=== PATIENT | female | born 1950 | race Caucasian/White ===

== ENCOUNTER → 2017-07-07 | Outpatient (CLI) | payer MEDICARE ==
[~2017-07-07] MED LIST: FUROSEMIDE INJ 10 MG/ML 4 ML VIAL ONE
--- NOTE | 2017-07-07 16:35 | Diagnostic Imaging Report ---
Renal Scan with Lasix Washout Clinical information: 67 F with unspecified hydronephrosis; congenital absence of the right kidney Comparison: Prior renal scan with Lasix 06/13/2016, 05/21/2015 and 06/12/2014 Technique: Following intravenous administration of 10 mCi of Tc-99m MAG3, dynamic images of the kidneys in the posterior projection were obtained through 40 minutes. Lasix 40 mg was administered intravenously at 10 minutes post injection of the tracer. Report: Left kidney: Perfusion of the left kidney is prompt. The kidney has a very elongated reniform shape with moderately severe thinning of the renal cortex.. Extraction of tracer from the blood pool is normal. Clearance of tracer from the renal parenchyma is prompt. The pelvicalyceal system is dilated, most prominently the intrarenal pelvis. Increased pooling of tracer within the pelvicalyceal system is seen. No net drainage of tracer from the pelvicalyceal system is seen prior to administration of Lasix. Washout of tracer from the pelvicalyceal system following administration of Lasix is rapid with a T-1/2 of 8 minutes (normal less than 15 minutes). No significant stasis of tracer is seen within the left ureter. Differential renal function: The left kidney contributes 100% of total renal function. Impression: The appearance, function and drainage of the left kidney are unchanged compared to the prior studies of 06/13/2016, 05/21/2015 and 06/12/2014. Comparison of the renograms shows high stability of function. The elongated appearance of the kidney may be congenital rather than obstructive. The dilated renal pelvis has a large capacity mainly because it lies along the elongated kidney; it does not have a bulging appearance. No physiologically significant obstruction of the renal collecting system is present. Signed by: Dr. Janiya Rodriguez M.D. on 07/07/2017 4:32 PM
== END ==
LOC: NM 08:14
PROVIDERS: ATTEND Urology
DX: N13.30 Unspecified hydronephrosis (principal)
CPT/HCPCS: 78708; A9562; J1940

== ENCOUNTER → 2018-06-20 | Outpatient (CLI) | payer MEDICARE ==
--- NOTE | 2018-06-21 21:57 | Diagnostic Imaging Report ---
Renal Scan with Lasix Washout Clinical information: 68 Technique: Following intravenous administration of 10 mCi of Tc-99m MAG3, dynamic images of the kidneys in the posterior projection were obtained through 40 minutes. Lasix 40 mg was administered intravenously at 10 minutes post injection of the tracer. Report: Left kidney: Perfusion of the left kidney is prompt. The kidney appears to consist of two moieties. Region of interest analysis was done of each moiety. The top moiety is labeled "right kidney". The lower moiety is larger and has the appearance of a mildly elongated kidney with moderate to marked thinning of the renal cortex. The upper moiety is smaller and is not elongated but has significant thinning of the renal cortex. Extraction of tracer from the blood pool by both moieties is normal for age. Clearance of tracer from the renal parenchyma of the top moiety is prompt and there is increased pooling of tracer within its pelvicaliceal system, most markedly in the renal pelvis. No net drainage of tracer form the pelvicalyceal system is seen prior to administration of Lasix. Washout of from the pelvicalyceal system following Lasix is prompt with a T-1/2 of 6 minutes (normal <15 minutes) There is some tracer retained in the renal cortex. No tracer is seen in the ureter associated with this upper moiety. The lower moiety shows a slightly prolonged clearance of tracer from the renal parenchyma. The pelvicalyceal sytem is dilated and there is pooling of tracer with in the pelvicalyceal system although not as much as in the upper moiety. There is no net drainage of tracer from th pelvicalyceal system prior to administration of Lasix. Following Lasix, washout of tracer from the pelvicalyceal system is adequate with a T-1/2 of clearance of tracer from the renal parenchyma of 12 minutes (normal <15 minutes). The ureter for the lower moiety exits from the kidney very inferiorly. There is no function renal parenchyma in the right renal bed. Differential renal function: The left kidney, which is the lower moiety, contributes 57% of total renal function and the "right kidney," which is the upper moiety contributes 43% (normal 43-57%). Impression: 1. The function of the left kidney, which is the lower moiety of the kidney in the left renal shows evidence of medical renal disease. The pelvicalyceal system is dilated but washout is within the normal. Physiologically significant obstruction of the UPJ is not suspected. The ureter exits the kidney from a very inferior position. It is not clear from the images if this ureter drains the entire kidney, that it both the lower and upper moieties, or just the lower moiety. 2 The function of the upper moiety of the kidney in the left renal bed is labeled as "right kidney" on the renograms. There is evidence of medical renal disease. Hydronephrosis is present and includes dilation of the renal pelvis. Washout of tracer from the pelvicalyceal system is adequate. Physiologically significant obstruction is not suspected. None of the images show a separate ureter for the upper moiety so can not be certain if there is a separate ureter draining tracer from the upper moiety or if the upper moiety drains into the lower moiety and they through the low-lying ureter seen that is draining the lower moiety. 3. The differential renal function is within the normal range although it is maximally widened. 4. Comparison to the most recent prior renal scan with Lasix shows greater hydronephrosis in the upper portion but is otherwise unchanged. The prior study was not reported as two moieties for the left kidney. Signed by: Dr. Janiya Rodriguez M.D. on 06/21/2018 9:53 PM
== END ==
LOC: NM 08:06
PROVIDERS: ATTEND Urology
DX: N13.5 Crossing vessel and stricture of ureter without hydronephrosis (principal); N13.1 Hydronephrosis with ureteral stricture, not elsewhere classified
CPT/HCPCS: 78708; A9562; J1940

== ENCOUNTER → 2019-11-27 | Outpatient (CLI) | payer MEDICARE, OTHER ==
--- NOTE | 2019-11-27 14:32 | Diagnostic Imaging Report ---
EXAM: Renal Ultrasound INDICATION: Chronic kidney disease, urinary tract infection COMPARISON: None TECHNIQUE: Transverse and longitudinal images of the kidneys and bladder were obtained. FINDINGS: Right Kidney: Status post right nephrectomy. Left Kidney: Length: 15.3 cm Appearance: Normal echogenicity. Collecting system: Severe hydronephrosis Stones: None Cyst/Mass: None Bladder: No mass or calculi. Left ureteral jet visualized. Prevoid volume estimate of 86.5 cc. Post void volume of 16.8 cc. IMPRESSION: Status post right nephrectomy. Severe left hydronephrosis which does not resolve after voiding. Signed by: Zain Lacy MD on 11/27/2019 2:29 PM
--- NOTE | 2019-11-27 18:55 | Diagnostic Imaging Report ---
Renal Scan with Lasix Washout Clinical information: 69 F with unspecified hydronephrosis; congenital absence of the right kidney Comparison: Prior renal scans with Lasix 06/20/2018, 07/07/2017, 06/13/2016, 05/21/2015 and 06/12/2014 Technique: Following intravenous administration of 10 mCi of Tc-99m MAG3, dynamic images of the kidneys in the posterior projection were obtained through 40 minutes. Lasix 40 mg was administered intravenously at 10 minutes post injection of the tracer. Report: Left kidney: Perfusion of the left kidney is prompt. The kidney has a very elongated reniform shape with moderately severe thinning of the renal cortex.. Extraction of tracer from the blood pool is normal. Clearance of tracer from the renal parenchyma begins promptly but is not complete by the end of the study. The pelvicalyceal system is dilated, most prominently the intrarenal pelvis. Increased pooling of tracer within the pelvicalyceal system is seen. No net drainage of tracer from the pelvicalyceal system is seen prior to administration of Lasix. Washout of tracer from the pelvicalyceal system following administration of Lasix is rapid with a T-1/2 of 10 minutes (normal less than 15 minutes). No significant stasis of tracer is seen within the left ureter. Differential renal function: The left kidney contributes 100% of total renal function. Impression: The appearance, function and drainage of the left kidney are unchanged compared to the prior study of 06/20/2018. Mild medical renal disease may be present. Comparison of the renograms shows high stability of function. The elongated appearance of the kidney may be congenital rather than obstructive. The dilated renal pelvis has a large capacity mainly because it lies along the elongated kidney; it does not have a bulging appearance. No physiologically significant obstruction of the renal collecting system is present. Signed by: Dr. Janiay Rodriguez M.D. on 11/27/2019 6:52 PM
== END ==
LOC: US 08:34
PROVIDERS: ATTEND Urology
DX: N18.9 Chronic kidney disease, unspecified (principal); N39.0 Urinary tract infection, site not specified
CPT/HCPCS: 76770; 76857; 78708; A9562; J1940

== ENCOUNTER → 2020-11-04 | Outpatient (CLI) | payer MEDICARE | LOC: NM 14:05 | PROVIDERS: ATTEND Urology | DX: N18.9 Chronic kidney disease, unspecified (principal) | CPT/HCPCS: 78708; A9562; J1940 ==

== ENCOUNTER → 2021-11-17 | Outpatient (CLI) | payer MEDICARE | LOC: NM 09:35 | PROVIDERS: ATTEND Urology | DX: N18.9 Chronic kidney disease, unspecified (principal); N39.3 Stress incontinence (female) (male) | CPT/HCPCS: 78708; A9562; J1940 ==

== ENCOUNTER → 2025-02-19 | Outpatient (REF) | payer MEDICARE | LOC: NM 14:04 | PROVIDERS: ATTEND Urology | DX: N13.30 Unspecified hydronephrosis (principal) | CPT/HCPCS: 78708; A9562; J1938 ==